=== PATIENT | female | born 1945 | race Native Hawaiian/Other Pacific Islander ===

== ENCOUNTER 2017-05-23 13:49 | Outpatient (CLI) | payer OTHER | END 2017-05-23 19:28 | disposition home or self-care (01) | LOC: MAMMO 13:49 | DX: Z12.31 Encounter for screening mammogram for malignant neoplasm of breast (principal) ==

== ENCOUNTER 2017-11-03 10:53 | Outpatient (CLI) | payer OTHER, MEDICARE ==
[2017-11-03 11:31] LABS: PLATELET COUNT 275 K/uL (152-353)
[2017-11-03 11:37] LABS: POTASSIUM 4.1 mmol/L (3.6-5.2)
== END 2017-11-03 19:17 | disposition home or self-care (01) ==
LOC: LABW 10:53
PROVIDERS: Internal Medicine
DX: E78.1 Pure hyperglyceridemia (principal); E55.9 Vitamin D deficiency, unspecified; Z79.899 Other long term (current) drug therapy
CPT/HCPCS: 36415; 80053; 80061; 81000; 82306; 84443; 85027

== ENCOUNTER 2017-12-20 11:10 | Outpatient (CLI) | payer OTHER, MEDICARE | END 2017-12-20 22:43 | disposition home or self-care (01) | LOC: LABW 11:10 | DX: D64.89 Other specified anemias (principal); D64.9 Anemia, unspecified; E53.8 Deficiency of other specified B group vitamins | CPT/HCPCS: 36415; 82272; 82607; 82728; 82747; 83540; 83550 ==

== ENCOUNTER 2019-04-09 16:14 | Emergency (ER) | payer OTHER, MEDICARE ==
[~2019-04-09] VITALS: Ht 160 cm; Wt 62.1 kg
[2019-04-09 18:41] LABS: PLATELET COUNT 264 K/uL (152-353)
[2019-04-09 18:50] LABS: POTASSIUM 3.7 mmol/L (3.6-5.2); SODIUM 137 mmol/L (136-145)
[2019-04-09 21:40] VITALS: BP 169/76; TEMP 97.3
== END 2019-04-09 21:40 | disposition home or self-care (01) ==
LOC: ED 16:14
PROVIDERS: Emergency Medicine
DX: R63.0 Anorexia (principal)
CPT/HCPCS: 36415; 80053; 81000; 82150; 83690; 83735; 84484; 85027; 96360; 99284